=== PATIENT | male | born 1935 | race Caucasian/White ===

== ENCOUNTER 2018-06-16 13:01 | Emergency (ER) | payer MEDICARE, BC ==
--- NOTE | 2018-06-16 15:41 | CRLCR ---
INDICATION: Fall, shortness of breath. Left-sided pain. TECHNIQUE: Chest radiograph 2 views COMPARISON: None FINDINGS: Cardiovascular and mediastinum: The heart silhouette is normal in size and morphology. The mediastinum is normal in appearance. Lungs and pleural spaces: Both lungs are unremarkable in appearance. No sign of pleural effusion seen. No pneumothorax is identified. Bones and soft tissues: Left shoulder arthroplasty hardware, unremarkable on lateral view. No displaced rib fracture deformity. IMPRESSION: 1. No acute cardiopulmonary disease is seen. Dictated by Ricky Aquino MD @ 06/16/2018 3:39:56 PM Dictated by: Ricky Aquino MD @ 06/16/2018 15:40:02 (Electronically Signed)
--- NOTE | 2018-06-16 15:47 | EDM.PDOC ---
ED HPI GENERAL MEDICAL PROBLEM - General Chief Complaint: General Stated Complaint: LEFT SHOULDER ISSUE Time Seen by Provider: 06/16/18 14:03 Source of Information: Reports: Patient History Limitations: Reports: No Limitations - History of Present Illness INITIAL COMMENTS - FREE TEXT/NARRATIVE: This man is here for a fall. He had a left shoulder replacement and I believe yesterday he was coming home after the surgery and walking around [place] when he tripped and fell. He fell on his left side. He says there is pain in the left shoulder as expected but he's mostly worried about pain in the left side of the chest. There are he has some lung trouble and has felt a little bit short of breath with it with some pain with breathing. He wants to make sure that he didn't do some damage to the lung. - Related Data Allergies Allergy/AdvReac Type Severity Reaction Status Date / Time No Known Allergies Allergy Verified 06/16/18 14:02 Home Meds: Home Meds Apixaban [Eliquis] 06/16/18 [History] Budesonide/Formoterol Fumarate [Symbicort 80-4.5 Mcg Inhaler] 06/16/18 [History ] Omeprazole 06/16/18 [History] Sotalol [Betapace] 06/16/18 [History] Tiotropium [Spiriva Handihaler] 06/16/18 [History] Past Medical History HEENT History: Reports: Cataract Cardiovascular History: Reports: Afib Respiratory History: Reports: COPD - Past Surgical History HEENT Surgical History: Reports: Adenoidectomy, Naso-Sinus Surgery, Tonsillectomy GI Surgical History: Reports: Appendectomy Male Surgical History: Reports: Prostatectomy Musculoskeletal Surgical History: Reports: Hip Replacement, Shoulder Surgery Social & Family History - Tobacco Use Smoking Status *Q: Never Smoker ED ROS GENERAL - Review of Systems Review Of Systems: ROS reveals no pertinent complaints other than HPI. ED EXAM, GENERAL - Physical Exam Exam: See Below Exam Limited By: No Limitations General Appearance: Alert, WD/WN, No Apparent Distress Respiratory/Chest: No Respiratory Distress, Lungs Clear, Other (Chest wall of the left is minimally tender.) Cardiovascular: Regular Rate, Rhythm Extremities: Other (The left arm is in a sling. There is some swelling to the left shoulder but I did not remove the bandages. The left elbow and forearm look just fine.) Course - Vital Signs Last Recorded V/S: Last Vital Signs Temp 37.2 C 06/16/18 14:14 Pulse 81 06/16/18 14:14 Resp 21 H 06/16/18 14:14 BP 113/68 06/16/18 14:14 Pulse Ox 93 L 06/16/18 14:14 - Radiology Interpretation Free Text/Narrative:: Chest x-ray showed no evidence of rib fracture pneumothorax or pleural effusion. Departure - Departure Time of Disposition: 15:46 Disposition: Home, Self-Care 01 Condition: Fair Clinical Impression: Chest wall trauma - Discharge Information Referrals: Rom Giron MD [Primary Care Provider] - Additional Instructions: Your chest wall is just bruised up a little bit but there is no injury to your lung. You will probably be sore for a few days but otherwise you should need no treatment.
== END 2018-06-16 16:32 | disposition home or self-care (01) ==
LOC: JP.ED 13:01
DX: S29.9XXA Unspecified injury of thorax, initial encounter (principal); M79.89 Other specified soft tissue disorders; I48.91 Unspecified atrial fibrillation; J44.9 Chronic obstructive pulmonary disease, unspecified; Z79.01 Long term (current) use of anticoagulants; Z79.899 Other long term (current) drug therapy; W01.0XXA Fall on same level from slipping, tripping and stumbling without subsequent striking against object, initial encounter
CPT/HCPCS: 71046; 99282; 99283-25

== ENCOUNTER 2019-03-10 13:29 | Emergency (ER) | payer MEDICARE, BC ==
[2019-03-10] MEDS ORDERED: Ondansetron 4 MG/2 ML SDV IVPUSH ONE (14:15)
[2019-03-10] MEDS ORDERED: Albuterol 0.083% 2.5 MG/3 ML Neb Soln NEB ONE (14:26)
[2019-03-10] MEDS ORDERED: Sodium Chloride 0.9% 10 ML Syringe FLUSH PRN (15:20)
[2019-03-10] MEDS ORDERED: Furosemide 40 MG/4 ML VIAL IVPUSH ONE (15:21)
--- NOTE | 2019-03-10 15:31 | CR ---
CHEST: 2 view CLINICAL HISTORY:SOB COMPARISON:06/16/2018 FINDINGS: The heart size, pulmonary vascular and hilar structures are normal. No infiltrate effusion or pneumothorax is seen. There are atherosclerotic changes in the aorta. Lungs are hyperaerated. There is some pleural-based scarring in the lateral right upper lobe unchanged since prior study. Lungs are hyperaerated. There are a few scattered granulomata There is a moderate compression deformity at L1 unchanged from prior study IMPRESSION: No acute cardiopulmonary process. Hyperaeration Previous granulomatous exposure
--- NOTE | 2019-03-10 15:57 | EDM.PDOC ---
ED HPI GENERAL MEDICAL PROBLEM - General Chief Complaint: Respiratory Problem Stated Complaint: SOB,NO ENERGY Time Seen by Provider: 03/10/19 13:50 Source of Information: Reports: Patient, Family History Limitations: Reports: No Limitations - History of Present Illness INITIAL COMMENTS - FREE TEXT/NARRATIVE: pt has a history of feeling increased sob for the past 3 days. It was worse today. He has not noted increased ankle swelling. he has a known history of copd. He Onset: Gradual, Other (last 3 days. ) Duration: Hour(s): Location: Reports: Chest Associated Symptoms: Reports: Cough, Other (pt has had a dry nonproductive cough. He has not had any chest pain. ) - Related Data Allergies Allergy/AdvReac Type Severity Reaction Status Date / Time No Known Allergies Allergy Verified 06/16/18 14:02 Home Meds: Home Meds Apixaban [Eliquis] 5 mg PO BID 06/16/18 [History] Budesonide/Formoterol Fumarate [Symbicort 80-4.5 Mcg Inhaler] 2 puff INH BID [History] Omeprazole 20 mg PO DAILY 06/16/18 [History] Sotalol [Betapace] 80 mg PO BID 06/16/18 [History] Tiotropium [Spiriva Handihaler] 1 - 2 puff IN BID 06/16/18 [History] Albuterol [Ventolin HFA] 2 puff INH ASDIRECTED PRN 03/10/19 [History] Multivitamin with Minerals [Multiple Vitamin] 1 tab PO DAILY 03/10/19 [History] Past Medical History HEENT History: Reports: Cataract Cardiovascular History: Reports: Afib Respiratory History: Reports: COPD - Past Surgical History HEENT Surgical History: Reports: Adenoidectomy, Naso-Sinus Surgery, Tonsillectomy GI Surgical History: Reports: Appendectomy Male Surgical History: Reports: Prostatectomy Musculoskeletal Surgical History: Reports: Hip Replacement, Shoulder Surgery Social & Family History - Tobacco Use Smoking Status *Q: Never Smoker - Caffeine Use Caffeine Use: Reports: Coffee - Recreational Drug Use Recreational Drug Use: No ED ROS GENERAL - Review of Systems Review Of Systems: See Below Constitutional: Reports: No Symptoms HEENT: Reports: No Symptoms Respiratory: Reports: Shortness of Breath, Cough, Other ( the cough is nonproductive. ) Cardiovascular: Reports: Other (pt has a history of atrial fib and he thought he might be in atrial fib, ) Endocrine: Reports: No Symptoms GI/Abdominal: Reports: No Symptoms : Reports: No Symptoms Musculoskeletal: Reports: No Symptoms Skin: Reports: No Symptoms ED EXAM, GENERAL - Physical Exam Exam: See Below Free Text/Narrative:: pt arrived feeling sob and feeling like he can,t get his air in. He has not noted increased ankle swelling. He has a history of copd. He has not had a fever. He has had a dry cough. Exam Limited By: No Limitations General Appearance: Alert, Anxious, Mild Distress, Other (his o2 sats are good. ) Ears: Normal TMs Nose: Normal Inspection Throat/Mouth: Normal Inspection Head: Atraumatic Neck: Normal Inspection Respiratory/Chest: Decreased Breath Sounds, Crackles Cardiovascular: Regular Rate, Rhythm GI/Abdominal: Soft (Male) Exam: Deferred Rectal (Males) Exam: Deferred Back Exam: Normal Inspection Extremities: Other ( no sig edema. ) Neurological: Alert, Oriented, Normal Cognition Psychiatric: Normal Affect Course - Vital Signs Last Recorded V/S: Last Vital Signs Temp 36.9 C 03/10/19 14:03 Pulse 67 03/10/19 16:01 Resp 17 03/10/19 16:01 BP 134/71 03/10/19 16:01 Pulse Ox 94 L 03/10/19 16:01 - Orders/Labs/Meds Labs: Laboratory Tests 03/10/19 03/10/19 03/10/19 Range/Units 14:09 14:09 14:20 WBC 9.4 (4.5-11.0) K/uL RBC 4.43 (4.30-5.90) M/uL Hgb 13.1 (12.0-15.0) g/dL Hct 41.4 (40.0-54.0) % MCV 94 (80-98) fL MCH 30 (27-31) pg MCHC 32 (32-36) % Plt Count 228 (150-400) K/uL Neut % (Auto) 59 (36-66) % Lymph % (Auto) 22 L (24-44) % [place] % (Auto) 15 H (2-6) % Eos % (Auto) 3 (2-4) % Baso % (Auto) 0 (0-1) % Sodium 135 L (140-148) mmol/L Potassium 4.5 (3.6-5.2) mmol/L Chloride 98 L (100-108) mmol/L Carbon Dioxide 29 (21-32) mmol/L Anion Gap 12.5 (5.0-14.0) mmol/L BUN 26 H (7-18) mg/dL Creatinine 1.8 H (0.8-1.3) mg/dL Est Cr Clr Drug Dosing 34.88 mL/min Estimated GFR (MDRD) 36 L (>60) Glucose 86 (74-106) mg/dL Calcium 8.3 L (8.5-10.1) mg/dL Total Bilirubin 0.7 (0.2-1.0) mg/dL AST 53 H (15-37) U/L ALT 70 (12-78) U/L Alkaline Phosphatase 263 H (46-116) U/L Troponin I (0.000-0.056) ng/mL NT-Pro-B Natriuret Pep 1520 H (5-450) pg/mL Total Protein 6.4 (6.4-8.2) g/dL Albumin 3.1 L (3.4-5.0) g/dL Globulin 3.3 (2.3-3.5) g/dL Albumin/Globulin Ratio 0.9 L (1.2-2.2) Urine Color (YELLOW) Urine Appearance (CLEAR) Urine pH (5.0-8.0) Ur Specific [place] (1.008-1.030) Urine Protein (NEGATIVE) mg/dL Urine Glucose (UA) (NEGATIVE) mg/dL Urine Ketones (NEGATIVE) mg/dL Urine Occult Blood (NEGATIVE) Urine Nitrite (NEGATIVE) Urine Bilirubin (NEGATIVE) Urine Urobilinogen (0.2-1.0) EU/dL Ur Leukocyte Esterase (NEGATIVE) Urine RBC (0-5) Urine WBC (0-5) Ur Epithelial Cells Amorphous Sediment Urine Bacteria Urine Mucus 03/10/19 03/10/19 Range/Units 14:20 16:06 WBC (4.5-11.0) K/uL RBC (4.30-5.90) M/uL Hgb (12.0-15.0) g/dL Hct (40.0-54.0) % MCV (80-98) fL MCH (27-31) pg MCHC (32-36) % Plt Count (150-400) K/uL Neut % (Auto) (36-66) % Lymph % (Auto) (24-44) % [place] % (Auto) (2-6) % Eos % (Auto) (2-4) % Baso % (Auto) (0-1) % Sodium (140-148) mmol/L Potassium (3.6-5.2) mmol/L Chloride (100-108) mmol/L Carbon Dioxide (21-32) mmol/L Anion Gap (5.0-14.0) mmol/L BUN (7-18) mg/dL Creatinine (0.8-1.3) mg/dL Est Cr Clr Drug Dosing mL/min Estimated GFR (MDRD) (>60) Glucose (74-106) mg/dL Calcium (8.5-10.1) mg/dL Total Bilirubin (0.2-1.0) mg/dL AST (15-37) U/L ALT (12-78) U/L Alkaline Phosphatase (46-116) U/L Troponin I < 0.017 (0.000-0.056) ng/mL NT-Pro-B Natriuret Pep (5-450) pg/mL Total Protein (6.4-8.2) g/dL Albumin (3.4-5.0) g/dL Globulin (2.3-3.5) g/dL Albumin/Globulin Ratio (1.2-2.2) Urine Color Yellow (YELLOW) Urine Appearance Slightly cloudy A (CLEAR) Urine pH 6.5 (5.0-8.0) Ur Specific [place] 1.020 (1.008-1.030) Urine Protein 30 H (NEGATIVE) mg/dL Urine Glucose (UA) Negative (NEGATIVE) mg/dL Urine Ketones Negative (NEGATIVE) mg/dL Urine Occult Blood Moderate H (NEGATIVE) Urine Nitrite Negative (NEGATIVE) Urine Bilirubin Negative (NEGATIVE) Urine Urobilinogen 1.0 (0.2-1.0) EU/dL Ur Leukocyte Esterase Negative (NEGATIVE) Urine RBC 20-30 H (0-5) Urine WBC 0-5 (0-5) Ur Epithelial Cells Rare Amorphous Sediment Not seen Urine Bacteria Rare Urine Mucus Not seen Meds: Medications Discontinued Medications Generic Name Dose Route Start Last Admin Trade Name Freq PRN Reason Stop Dose Admin Albuterol 2.5 mg 03/10/19 14:26 03/10/19 14:36 Proventil Neb Soln NEB 03/10/19 14:27 2.5 mg ONETIME ONE Administration Furosemide 60 mg 03/10/19 15:21 03/10/19 15:33 Lasix IVPUSH 03/10/19 15:22 60 mg ONETIME ONE Administration Methylprednisolone Sodium Succinate 125 mg 03/10/19 16:26 03/10/19 16:33 Solu-Medrol IVPUSH 03/10/19 16:27 125 mg ONETIME ONE Administration Ondansetron HCl 4 mg 03/10/19 14:15 Zofran IVPUSH 03/10/19 14:16 ONETIME ONE Sodium Chloride 10 ml 03/10/19 15:20 03/10/19 15:33 Saline Flush FLUSH 10 ml ASDIRECTED PRN Administration Keep Vein Open - Re-Assessments/Exams Free Text/Narrative Re-Assessment/Exam: 03/10/19 16:27 pt advised me that he had been out of his albuterol for several weeks and just recently he has noted the increased sob. He has an elevated bnp, his ekg and trop is neg. He has a chest xray which shows copd but no effusions. He is not coughing up any purulent looking sputum. He has used predisone sometimes when he has had an flare of his copd. He does not have a neb at home. 03/10/19 16:29 Departure - Departure Time of Disposition: 17:05 Disposition: Home, Self-Care 01 Condition: Fair Clinical Impression: COPD exacerbation, Has run out of medications, Renal insufficiency - Discharge Information Instructions: Chronic Obstructive Pulmonary Disease Exacerbation Referrals: PCP,None [Primary Care Provider] - Forms: ED Department Discharge Care Plan Goals: pt was given iv lasix in er to unload extra fluid but because of renal status no further lasix was ordered. He was given iv solumedrol. consistent fluid intake, predisone 10mg 2 tabs daily for 3 days then 1 tab daily for 3 days. a nebulizer was ordered, albuterol premixed solution -- use the nebulizer for the next week 3-4 times daily and then bid, follow up with regular Dr in 1 week. Sepsis Event Note - Evaluation Sepsis Screening Result: No Definite Risk - Focused Exam Date Exam was Performed: 03/12/19 Time Exam was Performed: 07:29
[2019-03-10] MEDS ORDERED: methylPREDNISolone Sodium Succinate 125 MG/2 ML SDV IVPUSH ONE (16:26)
== END 2019-03-10 17:01 | disposition home or self-care (01) ==
LOC: JP.ED 13:29
DX: J44.1 Chronic obstructive pulmonary disease with (acute) exacerbation (principal); N28.9 Disorder of kidney and ureter, unspecified; I48.91 Unspecified atrial fibrillation; Z79.899 Other long term (current) drug therapy; Z98.890 Other specified postprocedural states; Z90.49 Acquired absence of other specified parts of digestive tract
CPT/HCPCS: 36415; 71046; 80053; 81001; 83880; 84484; 85025; 93005; 93010; 94640; 96374; 96375; 99284; 99285; J1940; J2930

== ENCOUNTER 2020-05-11 13:52 | Emergency (ER) | payer MEDICARE, BC ==
--- NOTE | 2020-05-11 14:55 | EDM.PDOC ---
ED HPI GENERAL MEDICAL PROBLEM - General Chief Complaint: Neurological Problem Stated Complaint: BLACKING OUT Time Seen by Provider: 05/11/20 14:55 Source of Information: Reports: Patient, Family History Limitations: Reports: No Limitations - History of Present Illness INITIAL COMMENTS - FREE TEXT/NARRATIVE: pt had an episode where he felt like he was going to pass out which lasted for about 20 minutes. He did not have pain. He has been having these nearly daily. He has been under alot of stress with his wifes health. Onset: Today, Sudden, Other (lasted 20 minutes. ) Duration: Hour(s): Location: Reports: Head, Generalized Associated Symptoms: Reports: Syncope, Other (pt did not completely pass out. ) - Related Data Allergies Allergy/AdvReac Type Severity Reaction Status Date / Time No Known Allergies Allergy Verified 05/11/20 14:18 Home Meds: Home Meds Apixaban [Eliquis] 5 mg PO BID 06/16/18 [History] Budesonide/Formoterol Fumarate [Symbicort 80-4.5 Mcg Inhaler] 2 puff INH BID 06/16/18 [History] Omeprazole 20 mg PO DAILY 06/16/18 [History] Sotalol [Betapace] 40 mg PO BID 06/16/18 [History] Tiotropium [Spiriva Handihaler] 1 - 2 puff IN BID 06/16/18 [History] Albuterol [Ventolin HFA] 2 puff INH ASDIRECTED PRN 03/10/19 [History] Multivitamin with Minerals [Multiple Vitamin] 1 tab PO DAILY 03/10/19 [History] Past Medical History HEENT History: Reports: Cataract, Macular Degeneration Cardiovascular History: Reports: Afib, Other (See Below) Respiratory History: Reports: COPD, Sleep Apnea Other Respiratory History: cpap Gastrointestinal History: Reports: GERD Genitourinary History: Reports: None Musculoskeletal History: Reports: None Neurological History: Reports: Migraines Psychiatric History: Reports: Other (See Below) Other Psychiatric History: under a lot of stress lately Hematologic History: Reports: Anticoagulation Therapy Oncologic (Cancer) History: Reports: Leukemia, Other (See Below) Other Oncologic History: chronic lymphostatic leukemia - Infectious Disease History Infectious Disease History: Reports: Chicken Pox, Measles, Mumps - Past Surgical History Head Surgeries/Procedures: Reports: None HEENT Surgical History: Reports: Adenoidectomy, Cataract Surgery, Naso-Sinus Surgery, Tonsillectomy Cardiovascular Surgical History: Reports: None Respiratory Surgical History: Reports: None GI Surgical History: Reports: Appendectomy Male Surgical History: Reports: Prostatectomy Neurological Surgical History: Reports: None Musculoskeletal Surgical History: Reports: Hip Replacement, Shoulder Surgery Oncologic Surgical History: Reports: None Dermatological Surgical History: Reports: None Social & Family History - Tobacco Use Tobacco Use Status *Q: Former Tobacco User Used Tobacco, but Quit: Yes Month/Year Tobacco Last Used: 1967 Second Hand Smoke Exposure: No - Caffeine Use Caffeine Use: Reports: Coffee - Recreational Drug Use Recreational Drug Use: No ED ROS GENERAL - Review of Systems Review Of Systems: See Below Constitutional: Reports: No Symptoms HEENT: Reports: No Symptoms Respiratory: Reports: No Symptoms Cardiovascular: Reports: Other (pt is on sotolol and he does have a bradycardia. ) Endocrine: Reports: No Symptoms GI/Abdominal: Reports: No Symptoms, Other (pt may have not been drinking enough fluids. ) : Reports: No Symptoms Musculoskeletal: Reports: No Symptoms Skin: Reports: No Symptoms Neurological: Reports: Dizziness, Other (pt had a sensation for about 20 minutes that he was going top pass out. ) ED EXAM, NEURO - Physical Exam Exam: See Below Text/Narrative:: pt is a alert pt who is able to give a good history. He had a 20 minute episode where he felt like he was going to pass out. His bp was low on arrival. Exam Limited By: No Limitations General Appearance: Alert, No Apparent Distress, Other (rt pupil is larger than the rt and does not react well. ) Ears: Normal TMs Nose: Normal Inspection Throat/Mouth: Normal Inspection Head Exam: Atraumatic Neck: Normal Inspection, Other ( no carotid bruits. ) Respiratory/Chest: No Respiratory Distress Cardiovascular: Regular Rate, Rhythm GI/Abdominal: Soft, Non-Tender (Male) Exam: Deferred Rectal (Males) Exam: Deferred Neurological: Alert, Oriented x 3 Back Exam: Normal Inspection Extremities: Normal Inspection Psychiatric: Anxious Course - Vital Signs Last Recorded V/S: Last Vital Signs Temp 36.5 C 05/11/20 14:30 Pulse 52 L 05/11/20 16:12 Resp 13 05/11/20 16:12 BP 152/78 H 05/11/20 16:12 Pulse Ox 96 05/11/20 16:12 Orthostatic Blood Pressure [ 83/54 Standing] Orthostatic Blood Pressure [ 95/62 Sitting] Orthostatic Blood Pressure [ 104/56 Supine] - Orders/Labs/Meds Orders: Active Orders 24 hr Category Date Time Status UA W/MICROSCOPIC [URIN] Urgent Lab 05/11/20 14:24 Ordered Sodium Chloride 0.9% [Normal Saline] 1,000 ml Med 05/11/20 16:00 Active IV ASDIRECTED Medication Orders Sodium Chloride (Normal Saline) 1,000 mls @ 999 mls/hr IV ASDIRECTED TOVA Last Admin: 05/11/20 16:26 Dose: 999 mls/hr Documented by: MARGO Labs: Laboratory Tests 05/11/20 05/11/20 Range/Units 14:35 14:35 WBC 16.3 H (4.5-11.0) K/uL RBC 4.61 (4.30-5.90) M/uL Hgb 13.4 (12.0-15.0) g/dL Hct 43.2 (40.0-54.0) % MCV 94 (80-98) fL MCH 29 (27-31) pg MCHC 31 L (32-36) % Plt Count 213 (150-400) K/uL Add Manual Diff Yes Neutrophils % (Manual) 39 (36-66) % Lymphocytes % (Manual) 53 H (24-44) % Monocytes % (Manual) 7 H (2-6) % Blast Cells % 1 % Sodium 141 (140-148) mmol/L Potassium 5.2 (3.6-5.2) mmol/L Chloride 105 (100-108) mmol/L Carbon Dioxide 30 (21-32) mmol/L Anion Gap 6.2 (5.0-14.0) mmol/L BUN 25 H (7-18) mg/dL Creatinine 1.5 H (0.8-1.3) mg/dL Est Cr Clr Drug Dosing 41.10 mL/min Estimated GFR (MDRD) 44 L (>60) Glucose 91 (74-106) mg/dL Calcium 9.0 (8.5-10.1) mg/dL Total Bilirubin 1.1 H D (0.2-1.0) mg/dL AST 16 (15-37) U/L ALT 14 D (12-78) U/L Alkaline Phosphatase 181 H (46-116) U/L Total Protein 6.0 L (6.4-8.2) g/dL Albumin 3.7 (3.4-5.0) g/dL Globulin 2.3 (2.3-3.5) g/dL Albumin/Globulin Ratio 1.6 (1.2-2.2) Meds: Medications Generic Name Dose Route Start Last Admin Trade Name Freq PRN Reason Stop Dose Admin Sodium Chloride 1,000 mls @ 999 mls/hr 05/11/20 16:00 05/11/20 16:26 Normal Saline IV 999 mls/hr ASDIRECTED TOVA Administration - Re-Assessments/Exams Free Text/Narrative Re-Assessment/Exam: 05/11/20 17:25 pt appeared to be dehydrated. He had orthostatics that were low. He had a bradycardia. He was feeling fine in the ER. Departure - Departure Time of Disposition: 17:26 Disposition: Home, Self-Care 01 Condition: Fair Clinical Impression: Near syncope, Hypotension, Dehydration, Bradycardia - Discharge Information Referrals: Leena Pérez BIOLOGY INTERN [Primary Care Provider] - Forms: ED Department Discharge Care Plan Goals: 48 hour holter monitor, decrease sotolol to 1/2 tab daily push fluids, appt with Dr Carmichael in 4-5 days. Sepsis Event Note (ED) - Evaluation Sepsis Screening Result: No Definite Risk - Focused Exam Vital Signs: Vital Signs Temp Pulse Resp BP Pulse Ox 05/11/20 16:12 52 L 13 152/78 H 96 05/11/20 14:30 36.5 C 51 L 17 105/61 98 05/11/20 14:22 36.5 C 51 L 17 105/61 98 - My Orders Last 24 Hours: My Active Orders 05/11/20 14:24 UA W/MICROSCOPIC [URIN] Urgent 05/11/20 16:00 Sodium Chloride 0.9% [Normal Saline] 1,000 ml IV ASDIRECTED - Assessment/Plan Last 24 Hours: My Active Orders 05/11/20 14:24 UA W/MICROSCOPIC [URIN] Urgent 05/11/20 16:00 Sodium Chloride 0.9% [Normal Saline] 1,000 ml IV ASDIRECTED
--- NOTE | 2020-05-11 15:34 | CT ---
Head wo Cont CLINICAL HISTORY: Screening COMPARISON: No syncope TECHNIQUE: Transverse scans were obtained from the base of the skull through the vertex without IV contrast on a multislice, multidetector CT scanner. Auto dosage reduction and iterative reconstruction techniques employed. FINDINGS: No focal abnormal parenchymal densities identified. There is no mass effect, hemorrhage, or extraaxial collection. The basal cisterns and sulci over the convexities are prominent. This is more noticeable over the frontal convexities.. The ventricles are mildly prominent. IMPRESSION: No acute intracranial process Significant atrophic change Large extra-axial spaces with prominent anteriorly are likely due to atrophy alone but chronic bilateral subdural hygromas is not absolutely excluded
[2020-05-11] MEDS ORDERED: Sodium Chloride 0.9% 1,000 ML IV SCH (16:00)
== END 2020-05-11 17:46 | disposition home or self-care (01) ==
LOC: JP.ED 13:52
DX: E86.0 Dehydration (principal); I95.9 Hypotension, unspecified; R00.1 Bradycardia, unspecified; I48.91 Unspecified atrial fibrillation; J44.9 Chronic obstructive pulmonary disease, unspecified; K21.9 Gastro-esophageal reflux disease without esophagitis; Z87.891 Personal history of nicotine dependence; Z79.899 Other long term (current) drug therapy
CPT/HCPCS: 36415; 70450; 70450-26; 80053; 81001; 85025; 99284; 99284-25; J7030

== ENCOUNTER 2022-02-07 00:11 | Emergency (ER) | payer MEDICARE, BC ==
[2022-02-07 02:00] LABS: CORONAVIRUS COVID-19 NAA POSITIVE (NEGATIVE)
[2022-02-07] MEDS ORDERED: Sodium Chloride 0.9% 10 ML Syringe FLUSH PRN (02:10)
[2022-02-07] MEDS ORDERED: Benzonatate 100 MG Cap PO ONE (02:26)
== END 2022-02-07 04:09 | disposition home or self-care (01) ==
LOC: JP.ED 00:11
DX: U07.1 COVID-19 (principal); K21.9 Gastro-esophageal reflux disease without esophagitis; I48.91 Unspecified atrial fibrillation; J44.9 Chronic obstructive pulmonary disease, unspecified; E78.00 Pure hypercholesterolemia, unspecified; Z87.891 Personal history of nicotine dependence; Z79.899 Other long term (current) drug therapy; Z88.5 Allergy status to narcotic agent
CPT/HCPCS: 0241U; 36415; 80048; 81001; 83605; 85025; 99284; A9270; J3490

== ENCOUNTER 2022-02-09 06:50 | Emergency (ER) | payer MEDICARE, BC ==
[2022-02-09] MEDS ORDERED: Albuterol/Ipratropium 3.0-0.5 MG/3 ML Neb Soln NEB PRN (09:51)
[2022-02-09] MEDS ORDERED: Tiotropium Bromide 4 GM Inhalation Spray (2.5mcg/1 dose; 10 doses) INH SCH (10:00)
[2022-02-09] MEDS: Tiotropium Bromide 4 GM Inhalation Spray (2.5mcg/1 dose; 10 doses) INH SCH (10:39)
[2022-02-09] MEDS: Sotalol 80 MG Tab PO SCH ×2 (10:40→20:08)
[2022-02-09] MEDS: Apixaban 5 MG Tab PO SCH ×2 (10:40→20:09)
[2022-02-10] MEDS ORDERED: LORazepam 0.5 MG Tab PO ONE (06:22)
[2022-02-10] MEDS: Tiotropium Bromide 4 GM Inhalation Spray (2.5mcg/1 dose; 10 doses) INH SCH (06:31)
[2022-02-10] MEDS ORDERED: Pantoprazole 40 MG Tab.CR PO SCH (07:30)
[2022-02-10] MEDS ORDERED: Pantoprazole 40 MG Delayed-Release Granules 1 Packet PO SCH (07:30)
[2022-02-10] MEDS: Sotalol 80 MG Tab PO SCH (08:26)
[2022-02-10] MEDS: Apixaban 5 MG Tab PO SCH (08:26)
== END 2022-02-10 12:34 | disposition home or self-care (01) ==
LOC: JP.ED 06:50
DX: U07.1 COVID-19 (principal); I48.21 Permanent atrial fibrillation; F03.90 Unspecified dementia, unspecified severity, without behavioral disturbance, psychotic disturbance, mood disturbance, and anxiety; G31.9 Degenerative disease of nervous system, unspecified; J44.9 Chronic obstructive pulmonary disease, unspecified; C91.10 Chronic lymphocytic leukemia of B-cell type not having achieved remission; Z88.5 Allergy status to narcotic agent; Z79.01 Long term (current) use of anticoagulants; Z79.899 Other long term (current) drug therapy; Z90.49 Acquired absence of other specified parts of digestive tract
CPT/HCPCS: 36415; 71045; 80048; 82803; 83880; 85025; 94640; 99285; A9270

== ENCOUNTER 2022-07-03 06:52 | Emergency (ER) | payer MEDICARE, BC ==
[2022-07-03] MEDS ORDERED: Sodium Chloride 0.9% 10 ML Syringe FLUSH PRN (06:55)
[2022-07-03 07:08] LABS: HEMATOCRIT 39.5 % (38.4-49.7); HEMOGLOBIN 12.5 g/dL (12.9-16.9); MEAN CORPUSCULAR HEMOGLOBIN 29.5 pg (31.6-35.5); MEAN CORPUSCULAR HGB CONC 31.6 g/dL (31.6-35.5); MEAN CORPUSCULAR VOLUME 93.2 fL (81.4-99.0); PLATELET COUNT,PLT 167 K/uL (130-375); RED BLOOD CELL COUNT 4.24 M/uL (4.14-5.76); WHITE BLOOD CELL COUNT,WBC 20.2 K/uL (3.2-11.0)
[2022-07-03 07:29] LABS: ATYPICAL LYMPHOCYTES MODERATE; BAND PERCENT MAN 1 % (5-11); LYMPHOCYTES PERCENT MAN 50 % (24-44); MONOCYTES ABSOLUTE MAN 0.81 K/uL (0.20-0.90); MONOCYTES PERCENT MAN 4 % (2-6); NEUTROPHILS ABSOLUTE MAN 9.09 K/uL (1.0-7.6); SEG NEUTROPHILS PERCENT MAN 45 % (36-66)
[2022-07-03 07:30] LABS: CALCIUM 8.6 mg/dL (8.5-10.1); CREATININE 1.9 mg/dL (0.8-1.3); EST CRCL DRUG DOSING (CG) 32.12 mL/min; POTASSIUM,K 4.4 mmol/L (3.6-5.2)
[2022-07-03 07:33] LABS: ANION GAP 12.4 mmol/L (5.0-14.0); INR 1.1; PROTHROMBIN TIME 11.2 sec (9.2-10.6); PTT,PARTIAL THROMBOPLSTIN TIME 24.8 sec (21.8-27.3)
[2022-07-03] MEDS ORDERED: Lidocaine/Epineph/Tetracaine 3 ML Syringe TOP ONE (07:57)
[2022-07-03] MEDS ORDERED: Bacitracin Oint 1 GM U/D Packet TOP ONE (08:38)
== END 2022-07-03 11:20 | disposition home or self-care (01) ==
LOC: JP.ED 06:52
DX: S01.81XA Laceration without foreign body of other part of head, initial encounter (principal); S40.211A Abrasion of right shoulder, initial encounter; I48.91 Unspecified atrial fibrillation; I10 Essential (primary) hypertension; I25.10 Atherosclerotic heart disease of native coronary artery without angina pectoris; K21.9 Gastro-esophageal reflux disease without esophagitis; Z20.822 Contact with and (suspected) exposure to COVID-19; J44.9 Chronic obstructive pulmonary disease, unspecified; R41.0 Disorientation, unspecified; G43.909 Migraine, unspecified, not intractable, without status migrainosus; F02.80 Dementia in other diseases classified elsewhere, unspecified severity, without behavioral disturbance, psychotic disturbance, mood disturbance, and anxiety; G47.33 Obstructive sleep apnea (adult) (pediatric); Z79.899 Other long term (current) drug therapy; Z79.01 Long term (current) use of anticoagulants; W01.0XXA Fall on same level from slipping, tripping and stumbling without subsequent striking against object, initial encounter; R29.6 Repeated falls; C91.10 Chronic lymphocytic leukemia of B-cell type not having achieved remission; R53.1 Weakness; I95.1 Orthostatic hypotension; G30.1 Alzheimer's disease with late onset; E78.00 Pure hypercholesterolemia, unspecified; Z88.5 Allergy status to narcotic agent; Z90.89 Acquired absence of other organs; Z98.49 Cataract extraction status, unspecified eye; Z90.49 Acquired absence of other specified parts of digestive tract; Z90.79 Acquired absence of other genital organ(s)
CPT/HCPCS: 36415; 70450; 70486; 71046; 80048; 80053; 81001; 82550; 84145; 85025; 85610; 85730; 86140; 93005; 93010; 94640; 96372; 99284; 99285; A9270; G0378; J1650; U0002

== ENCOUNTER 2022-07-03 16:22 | Observation (INO) | payer MEDICARE, BC ==
[2022-07-03 16:51] LABS: HEMATOCRIT 38.7 % (38.4-49.7); HEMOGLOBIN 12.3 g/dL (12.9-16.9); MEAN CORPUSCULAR HEMOGLOBIN 29.5 pg (31.6-35.5); MEAN CORPUSCULAR HGB CONC 31.8 g/dL (31.6-35.5); MEAN CORPUSCULAR VOLUME 92.8 fL (81.4-99.0); PLATELET COUNT,PLT 164 K/uL (130-375); RED BLOOD CELL COUNT 4.17 M/uL (4.14-5.76); WHITE BLOOD CELL COUNT,WBC 27.2 K/uL (3.2-11.0)
[2022-07-03 17:10] LABS: BAND ABSOLUTE MAN 0.27 K/uL; BAND PERCENT MAN 1 % (5-11); EOSINOPHILS ABSOLUTE MAN 0.27 K/uL (0.00-0.40); EOSINOPHILS PERCENT MAN 1 % (2-4); LYMPHOCYTES ABSOLUTE MAN 18.22 K/uL (0.8-3.3); LYMPHOCYTES PERCENT MAN 67 % (24-44); MONOCYTES ABSOLUTE MAN 0.82 K/uL (0.20-0.90); MONOCYTES PERCENT MAN 3 % (2-6); NEUTROPHILS ABSOLUTE MAN 7.62 K/uL (1.0-7.6); SEG NEUTROPHILS PERCENT MAN 28 % (36-66)
[2022-07-03 17:11] LABS: A/G RATIO 1.5 (1.2-2.2); ALANINE AMINOTRANSFERASE,ALT 14 U/L (12-78); ALBUMIN 3.7 g/dL (3.4-5.0); ALKALINE PHOSPHATASE 114 U/L (46-116); ASPARTATE AMNIOTRANSFERASE,AST 25 U/L (15-37); ATYPICAL LYMPHOCYTES FEW; BILIRUBIN TOTAL 1.5 mg/dL (0.2-1.0); BLOOD UREA NITROGEN,BUN 32 mg/dL (7-18); CALCIUM 8.7 mg/dL (8.5-10.1); CARBON DIOXIDE,CO2 28 mmol/L (21-32); CHLORIDE,CL 102 mmol/L (100-108); CREATININE 1.7 mg/dL (0.8-1.3); ESTIMATED GFR 38 mL/min (>60); GLUCOSE RANDOM 94 mg/dL (74-106); POTASSIUM,K 4.1 mmol/L (3.6-5.2); PROTEIN TOTAL,TP 6.1 g/dL (6.4-8.2); SODIUM,NA 136 mmol/L (140-148)
[2022-07-03 17:13] LABS: ANION GAP 10.1 mmol/L (5.0-14.0)
[2022-07-03] MEDS ORDERED: Ondansetron 4 MG/2 ML SDV IV PRN (17:16)
[2022-07-03] MEDS ORDERED: Albuterol 0.083% 2.5 MG/3 ML Neb Soln NEB PRN (17:16)
[2022-07-03] MEDS ORDERED: Sodium Chloride 0.9% 10 ML Syringe FLUSH PRN (17:16)
[2022-07-03] MEDS ORDERED: Acetaminophen 325 MG Tab PO PRN (17:16)
[2022-07-03] MEDS ORDERED: Lidocaine 2% Jelly 10 ML Urojet MUCMEM ONE (20:46)
[2022-07-03] MEDS ORDERED: Donepezil 10 MG Tab PO SCH (21:00)
[2022-07-03] MEDS ORDERED: traZODone 50 MG Tab PO SCH (21:00)
[2022-07-03] MEDS ORDERED: Apixaban 5 MG Tab PO SCH (21:00)
[2022-07-03] MEDS ORDERED: Non-Formulary Medication 1 Each (Budesonide/Formoterol Fumarate [Symbicort 80-4.5 Mcg Inha INH SCH (21:00)
[2022-07-03] MEDS: Enoxaparin 40 MG/0.4 ML Syringe SUBCUT SCH (22:05)
[2022-07-03] MEDS: Formoterol/Mometasone 200-5 MCG 8.8 GM Inhaler IH SCH (22:05)
[2022-07-03 22:06] LABS: APPEARANCE,URINE CLEAR (CLEAR); BILIRUBIN,URINE NEGATIVE (NEGATIVE); COLOR,URINE YELLOW (YELLOW); GLUCOSE,URINE NEGATIVE (NEGATIVE); KETONES,URINE TRACE mg/dL (NEGATIVE); LEUKOCYTE ESTERASE,URINE NEGATIVE (NEGATIVE); NITRITE,URINE NEGATIVE (NEGATIVE); OCCULT BLOOD,URINE SMALL (NEGATIVE); PROTEIN,URINE 100 mg/dL (NEGATIVE); UROBILINOGEN,URINE 0.2 EU/dL (0.2-1.0)
[2022-07-03] MEDS: Tiotropium Bromide 4 GM Inhalation Spray (2.5mcg/1 dose; 10 doses) INH SCH (22:06)
[2022-07-03] MEDS: Temazepam 15 MG Cap PO SCH (22:06)
[2022-07-03] MEDS: Sotalol 80 MG Tab PO SCH (22:07)
[2022-07-03] MEDS: Melatonin 3 MG Tab PO SCH (22:07)
[2022-07-03 22:11] LABS: RBC,URINE 20-30 (0-5)
[2022-07-03 22:12] LABS: BACTERIA,URINE FEW; EPITHELIAL CELLS,URINE RARE; MUCUS,URINE RARE; WBC,URINE 0-5 (0-5)
[2022-07-03 22:13] LABS: AMORPHOUS SEDIMENT,URINE NOT SEEN
[2022-07-04 05:51] LABS: HEMATOCRIT 35.6 % (38.4-49.7); HEMOGLOBIN 11.2 g/dL (12.9-16.9); MEAN CORPUSCULAR HEMOGLOBIN 29.5 pg (31.6-35.5); MEAN CORPUSCULAR HGB CONC 31.5 g/dL (31.6-35.5); MEAN CORPUSCULAR VOLUME 93.7 fL (81.4-99.0); RED BLOOD CELL COUNT 3.8 M/uL (4.14-5.76)
[2022-07-04 05:56] LABS: WHITE BLOOD CELL COUNT,WBC 35.7 K/uL (3.2-11.0)
[2022-07-04 06:08] LABS: ANION GAP 6.5 mmol/L (5.0-14.0); CALCIUM 8.3 mg/dL (8.5-10.1); CREATININE 1.3 mg/dL (0.8-1.3); EST CRCL DRUG DOSING (CG) 46.83 mL/min; POTASSIUM,K 3.6 mmol/L (3.6-5.2)
[2022-07-04] MEDS: Pantoprazole 40 MG Tab.CR PO SCH (07:53)
[2022-07-04] MEDS: Formoterol/Mometasone 200-5 MCG 8.8 GM Inhaler IH SCH ×2 (08:42→20:49)
[2022-07-04] MEDS: Tiotropium Bromide 4 GM Inhalation Spray (2.5mcg/1 dose; 10 doses) INH SCH (08:42)
[2022-07-04] MEDS: Bisacodyl 5 MG Tab PO SCH (08:44)
[2022-07-04] MEDS ORDERED: Fludrocortisone 0.1 MG Tab PO SCH (09:00)
[2022-07-04] MEDS: Sotalol 80 MG Tab PO SCH ×2 (16:14→20:47)
[2022-07-04] MEDS: Enoxaparin 40 MG/0.4 ML Syringe SUBCUT SCH (17:49)
[2022-07-04] MEDS: Melatonin 3 MG Tab PO SCH (20:48)
[2022-07-04] MEDS: Temazepam 15 MG Cap PO SCH (20:53)
[2022-07-05] MEDS: Pantoprazole 40 MG Tab.CR PO SCH (07:08)
[2022-07-05] MEDS: Tiotropium Bromide 4 GM Inhalation Spray (2.5mcg/1 dose; 10 doses) INH SCH (08:40)
[2022-07-05] MEDS: Formoterol/Mometasone 200-5 MCG 8.8 GM Inhaler IH SCH ×2 (08:40→21:16)
[2022-07-05] MEDS: FLUDROCORTISONE 0.1 MG PO SCH (09:00)
[2022-07-05] MEDS: Bisacodyl 5 MG Tab PO SCH (09:23)
[2022-07-05] MEDS: Sotalol 80 MG Tab PO SCH (12:17)
[2022-07-05] MEDS: Enoxaparin 40 MG/0.4 ML Syringe SUBCUT SCH (17:39)
[2022-07-05] MEDS: Melatonin 3 MG Tab PO SCH (21:16)
[2022-07-05] MEDS: Temazepam 15 MG Cap PO SCH (21:16)
[2022-07-06] MEDS: Formoterol/Mometasone 200-5 MCG 8.8 GM Inhaler IH SCH (09:00)
[2022-07-06] MEDS: Tiotropium Bromide 4 GM Inhalation Spray (2.5mcg/1 dose; 10 doses) INH SCH (09:00)
[2022-07-06] MEDS: FLUDROCORTISONE 0.1 MG PO SCH (09:15)
[2022-07-06] MEDS: Bisacodyl 5 MG Tab PO SCH (09:15)
[2022-07-06] MEDS: Pantoprazole 40 MG Tab.CR PO SCH (09:15)
== END 2022-07-06 13:15 ==
LOC: JP.ED 16:22 → JP.ICU 16:44
PROVIDERS: ADMIT Hospitalist; ATTEND Hospitalist
DX: S01.81XA Laceration without foreign body of other part of head, initial encounter (principal); R29.6 Repeated falls; C91.10 Chronic lymphocytic leukemia of B-cell type not having achieved remission; R53.1 Weakness; G47.33 Obstructive sleep apnea (adult) (pediatric); I48.91 Unspecified atrial fibrillation; I25.10 Atherosclerotic heart disease of native coronary artery without angina pectoris; J44.9 Chronic obstructive pulmonary disease, unspecified; I10 Essential (primary) hypertension; I95.1 Orthostatic hypotension; G30.1 Alzheimer's disease with late onset; F02.80 Dementia in other diseases classified elsewhere, unspecified severity, without behavioral disturbance, psychotic disturbance, mood disturbance, and anxiety; E78.00 Pure hypercholesterolemia, unspecified; G43.909 Migraine, unspecified, not intractable, without status migrainosus; Z90.89 Acquired absence of other organs; Z98.49 Cataract extraction status, unspecified eye; Z90.49 Acquired absence of other specified parts of digestive tract; Z90.79 Acquired absence of other genital organ(s); R41.0 Disorientation, unspecified; Z79.01 Long term (current) use of anticoagulants; Z88.5 Allergy status to narcotic agent; Z20.822 Contact with and (suspected) exposure to COVID-19; W19.XXXA Unspecified fall, initial encounter
CPT/HCPCS: 36415; 80048; 83735; 85027; 94640; 96372; 97110; 97161; 97165; 97530; 99223; 99233; 99238; 99284; 99285; A9270; G0378; J1650; U0002; 70450; 70486; 71046; 71046-26; 80053; 81001; 82550; 84145; 85025; 85610; 85730; 86140; 93005